=== PATIENT | female | born 1990 | race Caucasian/White ===

== ENCOUNTER 2017-10-09 07:52 | Inpatient (IN) | payer BC ==
[~2017-10-09] VITALS: Ht 160 cm; Wt 105.5 kg
[2017-10-09] MEDS ORDERED: PREN1TAB60 PO (08:04)
[2017-10-09] MEDS ORDERED: MISOPROSTOL 200 MCG TABLET ONE (08:10)
[2017-10-09] MEDS ORDERED: LIDOCAINE-MPF 1%, 5ML ONE (08:10)
[2017-10-09] MEDS ORDERED: NEWBORN KIT ONE (08:10)
[2017-10-09] MEDS ORDERED: OXYTOCIN 30U/ 0.9% NaCL 500ML 500 ML ONE (08:10)
[2017-10-09] MEDS ORDERED: D5%-LACTATED RINGERS 1,000 ML IV SCH (08:12)
[2017-10-09] MEDS ORDERED: OXYTOCIN 30U/ 0.9% NaCL 500ML 500 ML IV ONE (08:12)
[2017-10-09] MEDS: LACTATED RINGERS 1,000 ML IV SCH ×2 (08:29→12:57)
[2017-10-09] MEDS ORDERED: CALCIUM CARBONATE 500 MG TAB.CHEW PO PRN (08:30)
[2017-10-09] MEDS ORDERED: FENTANYL PF 100 MCG/2ML IV PRN (08:30)
[2017-10-09] MEDS ORDERED: ONDANSETRON 2MG/ML, 2ML IVPush PRN (08:30)
[2017-10-09] MEDS ORDERED: FENTANYL PF 100 MCG/2ML IVPush PRN (08:30)
[2017-10-09] MEDS ORDERED: TERBUTALINE 1 MG/ML, 1ML IVPush PRN (08:30)
[2017-10-09 08:45] LABS: BASOPHILS # (AUTO) 0.01 x10^3/uL (0-0.1); BASOPHILS % (AUTO) 0 % (0-1); EOSINOPHILS # (AUTO) 0.02 x10^3/uL (0-0.4); EOSINOPHILS % (AUTO) 0 % (1-7); LYMPHOCYTES # (AUTO) 2.05 x10^3/uL (1-3.4); LYMPHOCYTES % (AUTO) 21 % (22-44); MD NO; MEAN CORPUSCULAR HEMOGLOBIN 27.2 pg (27.0-34.8); MEAN CORPUSCULAR HGB CONC 33.3 g/dL (32.4-35.8); MEAN CORPUSCULAR VOLUME 81.5 fL (80-100); MONOCYTES # (AUTO) 0.55 x10^3/uL (0.2-0.8); MONOCYTES % (AUTO) 6 % (2-9); NEUTROPHILS # (AUTO) 7.21 x10^3/uL (1.8-6.8); NEUTROPHILS % (AUTO) 73 % (42-75); PLATELET COUNT 240 x10^3/uL (130-400); RED BLOOD COUNT 4.29 x10^6/uL (3.82-5.3); RED CELL DISTRIBUTION WIDTH 15.3 % (9.6-15.2)
[2017-10-09] MEDS ORDERED: FENTANYL PF 100 MCG/2ML ONE (10:29)
[2017-10-09] MEDS: OXYTOCIN 30U/ 0.9% NaCL 500ML 500 ML IV SCH ×3 (11:45→15:10)
[2017-10-09] MEDS ORDERED: METHYLERGONOVINE 0.2 MG/ML IM PRN (12:00)
[2017-10-09] MEDS ORDERED: CARBOPROST TROMETHAMINE 250 MCG/ML, 1ML IM PRN (12:00)
[2017-10-09] MEDS ORDERED: MEASLES,MUMPS&RUBELLA VACC/PF 0.5 ML SQ-VACC PRN (12:00)
[2017-10-09] MEDS ORDERED: DOCUSATE 100 MG CAPSULE PO PRN (12:00)
[2017-10-09] MEDS ORDERED: ACETAMINOPHEN 325 MG TABLET PO PRN (12:00)
[2017-10-09] MEDS ORDERED: MISOPROSTOL 200 MCG TABLET PR PRN (12:00)
[2017-10-09] MEDS ORDERED: DIPH,PERTUSS(ACELL),TET VAC/PF NC IM-VACC PRN (12:00)
[2017-10-09] MEDS ORDERED: OXYcodone/APAP 5/325MG TABLET PO PRN ×2 (12:00)
[2017-10-09] MEDS ORDERED: IBUPROFEN 600 MG TABLET ONE (12:32)
[2017-10-09] MEDS: IBUPROFEN 600 MG TABLET PO PRN ×2 (12:33→17:43)
[2017-10-09 14:00] VITALS: BP 120/64
[2017-10-09 16:50] VITALS: BP 103/62
[2017-10-09 19:12] LABS: BASOPHILS # (AUTO) 0.04 x10^3/uL (0-0.1); BASOPHILS % (AUTO) 0 % (0-1); EOSINOPHILS # (AUTO) 0.02 x10^3/uL (0-0.4); EOSINOPHILS % (AUTO) 0 % (1-7); LYMPHOCYTES # (AUTO) 1.69 x10^3/uL (1-3.4); LYMPHOCYTES % (AUTO) 11 % (22-44); MD NO; MEAN CORPUSCULAR HEMOGLOBIN 28.1 pg (27.0-34.8); MEAN CORPUSCULAR HGB CONC 33.9 g/dL (32.4-35.8); MEAN CORPUSCULAR VOLUME 82.7 fL (80-100); MEAN PLATELET VOLUME 8.9 fL (7.4-10.4); MONOCYTES # (AUTO) 0.88 x10^3/uL (0.2-0.8); MONOCYTES % (AUTO) 6 % (2-9); NEUTROPHILS # (AUTO) 13.38 x10^3/uL (1.8-6.8); NEUTROPHILS % (AUTO) 84 % (42-75); PLATELET COUNT 239 x10^3/uL (130-400); RED BLOOD COUNT 4.04 x10^6/uL (3.82-5.3)
[2017-10-09 19:30] VITALS: BP 107/69
[2017-10-10 00:15] VITALS: BP 108/74
[2017-10-10 03:45] VITALS: BP 93/60
[2017-10-10 07:10] VITALS: BP 100/66
[2017-10-10] MEDS: IBUPROFEN 600 MG TABLET PO PRN (08:17)
[2017-10-10] MEDS ORDERED: PRENATAL VIT/IRON/FA 1 EACH TABLET PO SCH (09:00)
[2017-10-10] MEDS: OXYTOCIN 30U/ 0.9% NaCL 500ML 500 ML IV SCH (17:45)
[2017-10-10] MEDS ORDERED: DIPH,PERTUSS(ACELL),TET VAC/PF NC IM-VACC ONE (18:30)
== END 2017-10-10 18:35 | disposition home or self-care (01) | DRG 775 ==
LOC: LDOP 07:52 → LDIP 08:16 → 2NW 13:50 → EDSTATUS 10-16 07:52
PROVIDERS: ADMIT Obstetrics & Gynecology Maternal & Fetal Medicine; ATTEND Obstetrics & Gynecology Maternal & Fetal Medicine
PROC: 10E0XZZ Delivery of Products of Conception, External Approach (ICD-10-PCS; principal; 2017-10-09)
PROC: 3E0R3BZ Introduction of Anesthetic Agent into Spinal Canal, Percutaneous Approach (ICD-10-PCS; 2017-10-09)
PROC: 00HU33Z Insertion of Infusion Device into Spinal Canal, Percutaneous Approach (ICD-10-PCS; 2017-10-09)
DX: O24.420 Gestational diabetes mellitus in childbirth, diet controlled (principal); O69.81X0 Labor and delivery complicated by cord around neck, without compression, not applicable or unspecified; O71.82 Other specified trauma to perineum and vulva; Z37.0 Single live birth; Z3A.38 38 weeks gestation of pregnancy
CPT/HCPCS: 36415; 82962; 85025; 86850; 86900; 90715; J3010; J7120

== ENCOUNTER → 2018-05-07 | Outpatient (CLI) | payer BC ==
[~2018-05-07] MED LIST: MULT-224 PO; PREN1TAB60 PO
[2018-05-07 13:30] LABS: BASOPHILS # (AUTO) 0.08 x10^3/uL (0-0.1); BASOPHILS % (AUTO) 1 % (0-1); EOSINOPHILS # (AUTO) 0.09 x10^3/uL (0-0.4); EOSINOPHILS % (AUTO) 1 % (1-7); LYMPHOCYTES # (AUTO) 2.34 x10^3/uL (1-3.4); LYMPHOCYTES % (AUTO) 24 % (22-44); MD NO; MEAN CORPUSCULAR HEMOGLOBIN 27.4 pg (27.0-34.8); MEAN CORPUSCULAR HGB CONC 34.2 g/dL (32.4-35.8); MEAN CORPUSCULAR VOLUME 80.1 fL (80-100); MEAN PLATELET VOLUME 7.9 fL (7.4-10.4); MONOCYTES # (AUTO) 0.48 x10^3/uL (0.2-0.8); MONOCYTES % (AUTO) 5 % (2-9); NEUTROPHILS # (AUTO) 6.89 x10^3/uL (1.8-6.8); NEUTROPHILS % (AUTO) 70 % (42-75); PLATELET COUNT 307 x10^3/uL (130-400); RED CELL DISTRIBUTION WIDTH 14.9 % (9.6-15.2)
[2018-05-07 13:45] LABS: MICROSCOPIC INDICATED
[2018-05-07 13:52] LABS: CULTURE INDICATED? YES
== END | disposition home or self-care (01) ==
LOC: STAR 12:37
PROVIDERS: ATTEND Obstetrics & Gynecology Maternal & Fetal Medicine
DX: Z01.818 Encounter for other preprocedural examination (principal)
CPT/HCPCS: 36415; 81001; 84703; 85025; 87086

== ENCOUNTER 2018-05-16 13:10 | Day surgery (SDC) | payer BC ==
[~2018-05-16] VITALS: Ht 160 cm; Wt 100.4 kg
[2018-05-16 13:36] VITALS: BP 115/78
[2018-05-16] MEDS ORDERED: LACTATED RINGERS 1,000 ML IV SCH (13:40)
[2018-05-16] MEDS ORDERED: DIPHENHYDRAMINE 50 MG/ML, 1ML IVPush PRN (14:00)
[2018-05-16] MEDS ORDERED: LABETALOL 5MG/ML, 20ML IV PRN (14:00)
[2018-05-16] MEDS ORDERED: PROCHLORPERAZINE 5 MG/ML, 2ML IV PRN (14:00)
[2018-05-16] MEDS ORDERED: MEPERIDINE/PF 25MG/0.5ML IVPush PRN (14:00)
[2018-05-16] MEDS ORDERED: OXYcodone 5 MG/5 ML ORAL.SOL UDC PO PRN (14:00)
[2018-05-16] MEDS ORDERED: hydrALAzine 20 MG/ML, 1ML IV PRN (14:00)
[2018-05-16] MEDS ORDERED: GABAPENTIN 300 MG CAPSULE PO ONE (14:00)
[2018-05-16] MEDS ORDERED: HYDROmorphone 1 MG/ML, 1ML IV PRN (14:00)
[2018-05-16] MEDS ORDERED: ACETAMINOPHEN 500 MG TABLET PO ONE (14:00)
[2018-05-16 14:08] LABS: HCG UR SG 1.023 (1.003-1.030)
[2018-05-16] MEDS ORDERED: BUPIVACAINE/PF-EPI 0.25% 1:200K ONE (14:35)
[2018-05-16] MEDS ORDERED: MIDAZOLAM 1 MG/ML, 2ML ONE (14:39)
[2018-05-16] MEDS ORDERED: FENTANYL PF 250 MCG/5ML ONE (14:40)
[2018-05-16] MEDS ORDERED: SCOPOLAMINE PATCH, 1.5MG PATCH.TD72 TD ONE (14:44)
[2018-05-16] MEDS ORDERED: CEFAZOLIN 1,000 MG ONE (16:28)
[2018-05-16] MEDS ORDERED: DEXAMETHASONE 4 MG/ML, 1ML ONE (16:28)
[2018-05-16] MEDS ORDERED: NEOSTIGMINE 1 MG/ML, 10ML ONE (16:28)
[2018-05-16] MEDS ORDERED: ONDANSETRON 2MG/ML, 2ML ONE (16:28)
[2018-05-16] MEDS ORDERED: ROCURONIUM 10MG/ML,5ML ONE (16:28)
[2018-05-16] MEDS ORDERED: SUCCINYLCHOLINE 20 MG/ML, 10ML ONE (16:28)
[2018-05-16] MEDS ORDERED: GLYCOPYRROLATE 0.2MG/1ML, 5ML ONE (16:28)
[2018-05-16] MEDS ORDERED: PROPOFOL 10 MG/ML, 20ML ONE (16:28)
[2018-05-16] MEDS ORDERED: NEOSPORIN OINT. PKT 1 PACKET ONE (16:36)
[2018-05-16] MEDS ORDERED: FENTANYL PF 100 MCG/2ML ONE (17:02)
[2018-05-16] MEDS ORDERED: OXYcodone 5 MG/5 ML ORAL.SOL UDC ONE (17:02)
[2018-05-16] MEDS: FENTANYL PF 100 MCG/2ML IV PRN ×2 (17:05→17:28)
[2018-05-16 17:50] VITALS: BP 103/70
[2018-05-16 18:53] VITALS: BP 106/71
[2018-05-16 20:47] LABS: BASOPHILS # (AUTO) 0.03 x10^3/uL (0-0.1); BASOPHILS % (AUTO) 0 % (0-1); EOSINOPHILS # (AUTO) 0.01 x10^3/uL (0-0.4); EOSINOPHILS % (AUTO) 0 % (1-7); LYMPHOCYTES # (AUTO) 1.11 x10^3/uL (1-3.4); LYMPHOCYTES % (AUTO) 8 % (22-44); MD NO; MEAN CORPUSCULAR HEMOGLOBIN 27.2 pg (27.0-34.8); MEAN CORPUSCULAR HGB CONC 33.8 g/dL (32.4-35.8); MEAN CORPUSCULAR VOLUME 80.5 fL (80-100); MEAN PLATELET VOLUME 7.8 fL (7.4-10.4); MONOCYTES # (AUTO) 0.05 x10^3/uL (0.2-0.8); MONOCYTES % (AUTO) 0 % (2-9); NEUTROPHILS # (AUTO) 12.18 x10^3/uL (1.8-6.8); NEUTROPHILS % (AUTO) 91 % (42-75); PLATELET COUNT 305 x10^3/uL (130-400)
== END 2018-05-16 22:18 | disposition home or self-care (01) ==
LOC: OUT 13:10 → 4NOR 17:50 → OUT 22:18
PROVIDERS: ATTEND Obstetrics & Gynecology Maternal & Fetal Medicine
DX: Z30.2 Encounter for sterilization (principal); Z30.432 Encounter for removal of intrauterine contraceptive device; Z91.010 Allergy to peanuts
CPT/HCPCS: 36415; 58301; 58661; 81025; 85025; 88302; J0330; J0690; J1100; J2250; J2405; J2704; J2710; J3010; J3490; J7120; G0378